=== PATIENT | female | born 1955 | race Caucasian/White ===

== ENCOUNTER 2024-04-21 01:30 | Emergency (ER) | payer MEDICARE | END 2024-04-21 02:20 | disposition home or self-care (01) | LOC: CSHERS 01:30 | DX: S93.401A Sprain of unspecified ligament of right ankle, initial encounter (principal); R03.0 Elevated blood-pressure reading, without diagnosis of hypertension; X50.1XXA Overexertion from prolonged static or awkward postures, initial encounter; Z75.3 Unavailability and inaccessibility of health-care facilities ==